=== PATIENT | female | born 1995 | race Caucasian/White ===

== ENCOUNTER 2021-09-25 18:53 | Emergency (ER) | payer SELFPAY ==
[2021-09-25 21:04] LABS: Basophils % (Auto) 0.2 % (0.0-1.8); Eosinophils # (Auto) 0.2 K/mm3 (0.0-0.4); Eosinophils % (Auto) 1.2 % (0.0-4.3); Hematocrit 35.1 % (30.3-42.9); Hemoglobin 11.9 gm/dl (10.1-14.3); Lymphocytes # (Auto) 3.6 K/mm3 (1.2-5.4); Lymphocytes % (Auto) 26.7 % (13.4-35.0); Mean Corpuscular HGB Conc 34 % (30-34); Mean Corpuscular Volume 88 fl (79-97); Monocytes # (Auto) 0.8 K/mm3 (0.0-0.8); Monocytes % (Auto) 5.7 % (0.0-7.3); Platelet Count 200 K/mm3 (140-440); Red Blood Count 4.01 M/mm3 (3.65-5.03); Red Cell Distribution Width 12.9 % (13.2-15.2)
--- NOTE | 2021-09-25 22:44 | Emergency Department Report ---
ED Female HPI - General Chief complaint: Vaginal Bleeding Stated complaint: 13WKS /BLEEDING Time Seen by Provider: 09/25/21 22:32 Source: patient Mode of arrival: Ambulatory Limitations: No Limitations - History of Present Illness Initial comments: Patient a 26-year-old female who is G4, who presents for vaginal bleeding x3 days. Patient states she is 13 weeks . Patient followed by [facility], patient denies fevers or chills no nausea or vomiting. Bilateral lower abdominal cramping is described at 4/10 intermittent. Patient denies other symptoms. MD Complaint: vaginal bleeding - Related Data Previous Rx's Medication Instructions Recorded Last Taken Type Acetaminophen 650 mg PO Q6H PRN #30 cap 09/26/21 Unknown Rx cephALEXin [Keflex] 500 mg PO BID 7 Days #14 cap 09/26/21 Unknown Rx Allergies Allergy/AdvReac Type Severity Reaction Status Date / Time No Known Allergies Allergy Verified 09/25/21 19:47 ED Review of Systems ROS: Stated complaint: 13WKS /BLEEDING Other details as noted in HPI Constitutional: denies: chills, fever Eyes: denies: eye pain, eye discharge, vision change ENT: denies: ear pain, throat pain Respiratory: denies: cough, shortness of breath, wheezing Cardiovascular: denies: chest pain, palpitations Endocrine: no symptoms reported Gastrointestinal: abdominal pain (Abdominal cramping). denies: nausea, vomiting, diarrhea, constipation Genitourinary: denies: urgency, dysuria, frequency, hematuria, discharge Musculoskeletal: back pain. denies: joint swelling, arthralgia Skin: denies: rash, lesions Neurological: denies: headache, weakness, paresthesias, vertigo Psychiatric: denies: anxiety, depression Hematological/Lymphatic: denies: easy bleeding, easy bruising ED Past Medical Hx - Medications Home Medications: Home Medications Medication Instructions Recorded Confirmed Last Taken Type Acetaminophen 650 mg PO Q6H PRN #30 cap 09/26/21 Unknown Rx cephALEXin [Keflex] 500 mg PO BID 7 Days #14 cap 09/26/21 Unknown Rx ED Physical Exam - General Limitations: No Limitations General appearance: alert, in no apparent distress - Head Head exam: Present: normocephalic, normal inspection - Eye Eye exam: Present: EOMI Pupils: Present: normal accommodation - ENT ENT exam: Present: mucous membranes moist - Neck Neck exam: Present: normal inspection, full ROM. Absent: tenderness - Respiratory Respiratory exam: Present: normal lung sounds bilaterally. Absent: respiratory distress, wheezes - Cardiovascular Cardiovascular Exam: Present: regular rate, normal rhythm, normal heart sounds. Absent: systolic murmur, diastolic murmur, rubs, gallop - GI/Abdominal GI/Abdominal exam: Present: soft, normal bowel sounds. Absent: distended, tenderness, guarding, rebound, rigid - Rectal Rectal exam: Present: deferred - Extremities Exam Extremities exam: Present: normal inspection, full ROM, normal capillary refill. Absent: pedal edema - Back Exam Back exam: Present: normal inspection, full ROM. Absent: CVA tenderness (R), CVA tenderness (L) - Neurological Exam Neurological exam: Present: alert, oriented X3, CN II-XII intact, normal gait - Expanded Neurological Exam Expanded Patient oriented to: Present: person, place, time Speech: Present: fluid speech Motor strength exam: RUE: 5, LUE: 5, RLE: 5, LLE: 5 Best Eye Response (Janet): (4) open spontaneously Best Motor Response (Michael): (6) obeys commands Best Verbal Response (Michael): (5) oriented Janet Total: 15 - Psychiatric Psychiatric exam: Present: normal affect, normal mood - Skin Skin exam: Present: warm, dry, intact, normal color. Absent: rash ED Course Vital Signs 09/25/21 18:54 Temperature 97.8 F Pulse Rate 73 Respiratory 18 Rate Blood Pressure 129/77 [Right] O2 Sat by Pulse 100 Oximetry ED Medical Decision Making - Lab Data Result diagrams: 09/25/21 20:37 Labs 09/25/21 09/25/21 09/25/21 20:37 20:37 20:37 WBC 13.5 H RBC 4.01 Hgb 11.9 Hct 35.1 MCV 88 MCH 30 MCHC 34 RDW 12.9 L Plt Count 200 Lymph % (Auto) 26.7 [place] % (Auto) 5.7 Eos % (Auto) 1.2 Baso % (Auto) 0.2 Lymph # (Auto) 3.6 [place] # (Auto) 0.8 Eos # (Auto) 0.2 Baso # (Auto) 0.0 Seg Neutrophils % 66.2 Seg Neutrophils # 8.9 H HCG, Qual Positive HCG, Quant 96341 H Urine Color Urine Turbidity Urine pH Ur Specific [place] Urine Protein Urine Glucose (UA) Urine Ketones Urine Blood Urine Nitrite Urine Bilirubin Urine Urobilinogen Ur Leukocyte Esterase Urine WBC (Auto) Urine RBC (Auto) U Epithel Cells (Auto) Urine Bacteria (Auto) Calcium Oxalate Crystal Urine Mucus Urine Yeast (Budding) Blood Type 09/25/21 09/25/21 20:37 23:19 WBC RBC Hgb Hct MCV MCH MCHC RDW Plt Count Lymph % (Auto) [place] % (Auto) Eos % (Auto) Baso % (Auto) Lymph # (Auto) [place] # (Auto) Eos # (Auto) Baso # (Auto) Seg Neutrophils % Seg Neutrophils # HCG, Qual HCG, Quant Urine Color Yellow Urine Turbidity Slightly-cloudy Urine pH 5.0 Ur Specific [place] 1.016 Urine Protein 30 mg/dl Urine Glucose (UA) Neg Urine Ketones Neg Urine Blood Lg Urine Nitrite Neg Urine Bilirubin Neg Urine Urobilinogen < 2.0 Ur Leukocyte Esterase Tr Urine WBC (Auto) 10.0 H Urine RBC (Auto) 5.0 U Epithel Cells (Auto) 24.0 H Urine Bacteria (Auto) 2+ Calcium Oxalate Crystal 1+ Urine Mucus 3+ Urine Yeast (Budding) Few Blood Type O POSITIVE - Radiology Data Radiology results: report reviewed, image reviewed US OB <= 14 weeks fetus INDICATION / CLINICAL INFORMATION: vag bleeding pos preg beta hCG not specified COMPARISON: None available. TECHNIQUE: Using a transcutaneous probe, multiple grayscale, color Doppler, and spectral Doppler images of the uterus and fetus were captured and stored. FINDINGS: Single intrauterine gestational sac is demonstrated containing pole as well as demonstrating presence of body/limb motion. heart rate of 151 bpm is demonstrated. Mean gestational sac size of 7.94 mm and mean crown-rump length of 6.8 x 8 mm r esults in the composite estimated age of 13 weeks 1 day, EDC 04/02/2022. Clinical estimate of gestational age based on LMP of 06/26/2021 is 13 weeks 0 days. The right ovary is not identified, surgically absent. Left ovary measures 3.1 x 1.4 x 2.9 cm. Uterus measures 13.2 x 5.8 x 10.3 cm. IMPRESSION: 1. Single living intrauterine gestation as detailed. Signer Name: Allyssa Owen II, MD Signed: 09/25/2021 11:22 PM Workstation Name: [id number] Transcribed By: SASKIA Dictated By: ALLYSSA OWEN II, MD Electronically Authenticated By: ALLYSSA OWEN II, MD Signed Date/Time: 09/25/212321 DD/ 18 TD/TT: Print - Medical Decision Making Ultrasound single IUP heart rate 1 5 1 bpm, labs noted as above, plan treat for UTI during , diagnosis vaginal bleeding during , follow-up with [facility] in 1 to 2 days. Return to emergency department should symptoms worsen. Patient and family verbalized agreement understanding with same patient DC'd home in stable condition at this time. Critical care attestation.: If time is entered above; I have spent that time in minutes in the direct care of this critically ill patient, excluding procedure time. ED Disposition Clinical Impression: Vaginal bleeding during Disposition: 01 HOME / SELF CARE / HOMELESS Is pt being admited?: No Does the pt Need Aspirin: No Condition: Stable Instructions: Activity Restriction During Additional Instructions: Follow-up with your [facility] in 1 to 2 days, pelvic rest, take medications as prescribed. Return to emergency department should symptoms worsen. Prescriptions: Acetaminophen 650 mg PO Q6H PRN #30 cap PRN Reason: pain cephALEXin [Keflex] 500 mg PO BID 7 Days #14 cap Referrals: RHONA DE SANTIAGO MD [Staff Physician] - 3-5 Days Forms: Work/School Release Form(ED) Time of Disposition: 00:54 Print Language: LUX[place]ISH
--- NOTE | 2021-09-25 23:27 | Ultrasound Report ---
US OB <= 14 weeks fetus INDICATION / CLINICAL INFORMATION: vag bleeding pos preg beta hCG not specified COMPARISON: None available. TECHNIQUE: Using a transcutaneous probe, multiple grayscale, color Doppler, and spectral Doppler imag es of the uterus and fetus were captured and stored. FINDINGS: Single intrauterine gestational sac is demonstrated containing pole as well as demonstrating pr esence of body/limb motion. heart rate of 151 bpm is demonstrated. Mean gestational sac size of 7.94 mm and mean crown-rump length of 6.8 x 8 mm results in the composit e estimated age of 13 weeks 1 day, EDC 04/02/2022. Clinical estimate of gestational age based on LMP of 06/26/2021 is 13 weeks 0 days. The right ovary is not identified, surgically absent. Left ovary measures 3.1 x 1.4 x 2.9 cm. Uterus measures 13.2 x 5.8 x 10.3 cm. IMPRESSION: 1. Single living intrauterine gestation as detailed. Signer Name: Prasanna Owen II, MD Signed: 09/25/2021 11:22 PM Workstation Name: [id number]
[2021-09-25 23:30] LABS: Bilirubin,Urine NEG (Negative); Blood,Urine LG (Negative); Color,Urine Yellow (Yellow); Urobilinogen,Urine < 2.0 mg/dL (<2.0)
[2021-09-25 23:32] LABS: Bacteria,Urine 2+ /HPF (Negative); Calcium Oxalate Crystals,Urine 1+; Mucus,Urine 3+ /HPF
[2021-09-26 01:54] VITALS: BP 131/82
== END 2021-09-26 01:54 | disposition home or self-care (01) ==
LOC: ED 18:53
DX: O20.8 Other hemorrhage in early pregnancy (principal); Z3A.13 13 weeks gestation of pregnancy
CPT/HCPCS: 36415; 76801; 81001; 84702; 84703; 85025; 86900; 86901; 87086; 99284